=== PATIENT | male | born 1970 | race Caucasian/White ===

== ENCOUNTER 2017-03-10 18:58 | Emergency (ER) | payer SELFPAY ==
[~2017-03-10 18:58] MED LIST: AMOXIL875 MG PO; CIPRO PO; FLEXERIL10 MG PO; KEFLEX PO; LORTAB 7.5-5001 TAB PO; MEDROL4 MG/DOSE- PO; NO MEDICATIONS; PERCOCET5/325 PO; PHENERGAN25 MG PO; VICODIN 5/1 TAB 5/50 PO; VICODIN 5/500 T1 TAB PO; VOLTAREN50 MG PO
== END 2017-03-10 20:09 | disposition home or self-care (01) ==
LOC: SED 18:58
DX: H20.00 Unspecified acute and subacute iridocyclitis (principal); I10 Essential (primary) hypertension; E78.5 Hyperlipidemia, unspecified; F17.210 Nicotine dependence, cigarettes, uncomplicated
CPT/HCPCS: 82947; 99283